=== PATIENT | male | born 1940 | race Caucasian/White ===

== ENCOUNTER → 2018-01-26 | Outpatient (CLI) | payer OTHER ==
[~2018-01-26] VITALS: Ht 180.3 cm; Wt 86.2 kg
[~2018-01-26] MED LIST: ARTIFICIAL TEAR1510 OPHTHALMIC; ASPIRIN81 M2 PO; BENADRYL25 MG PO; MULTIVITAMINS1 EAC4 PO; PROTONIX40 M1 PO
--- NOTE | ~2018-01-26 | P ---
[facility] [place] [address] PROCEDURE REPORT Name: PADMINIMARTITA P [id number] Admission: 01/26/18 Attend Phys: Pj Meza Discharge: Date of : 40 Report #: [id number] THIS REPORT FOR: //name// CC: Dexter Cárdenas DATE OF SERVICE: 01/26/2018 PROCEDURE PERFORMED: Upper endoscopy with esophageal dilation. HISTORY OF PRESENT ILLNESS: The patient is a 77-year-old male who was seen by myself in the office recently for melanotic type stools. He has been taking aspirin in the past. He had an upper endoscopy several years ago showing grade B erosive esophagitis, but he did not stay on PPI therapy. He does report intermittent heartburn symptoms and he takes Tums on a p.r.n. basis. He also complains of dysphagia at times. Plan is for EGD and colonoscopy today. DESCRIPTION OF PROCEDURE: The risks and benefits of the procedure were explained to the patient. Those risks including but not limited to bleeding, perforation and the risk of sedation. He understood these risks and gave informed consent. Sedation was given using propofol per Anesthesia. Next, using a standard PSafen upper endoscope, the scope was placed in the patient's mouth and advanced under direct vision through the esophagus, stomach and into the second portion of the duodenum. The larynx was normal in appearance. There was mild narrowing in the upper esophagus. The mid esophagus was normal. In the distal esophagus, a mild Schatzki's ring with grade B erosive esophagitis was noted. No evidence of bleeding. Overall, the gastric mucosa was normal. The pylorus was normal and patent. The duodenal bulb, first and second portion were all normal. The scope was then brought back up into the patient's stomach and a Savary guidewire was inserted through the scope, leaving the guidewire in place. Next, a 48-Bengali Savary dilation of the esophagus was then performed without difficulty. The wire and dilator removed. The scope was reintroduced into the patient's stomach. There was a small mucosal tear in the upper esophagus but no bleeding. The scope was then withdrawn and the procedure terminated. The patient tolerated the procedure well. IMPRESSION: 1. Mild narrowing, upper esophagus. 2. Mild Schatzki's ring, lower esophagus with grade B erosive esophagitis. No evidence of bleeding. 3. Otherwise, normal upper endoscopy. RECOMMENDATIONS: 1. Observe the patient post-dilation. 2. Continue daily PPI therapy. [address] [address] PROCEDURE REPORT Name: MARTITA WASHINGTON Room #: REG VALERIE Livingston#: [id number] Admission: 01/26/18 Attend Phys: Pj Meza Discharge: Date of : 40 Report #: [id number] 3. We will proceed with colonoscopy next today. Thank you for allowing me to participate in his care. <ELECTRONICALLY SIGNED> By: Pj Cárdenas MD 01/27/18 0854 [id number] 1231 Pj Cárdenas MD /nt
--- NOTE | ~2018-01-26 | S ---
[facility] [place] [address] SURGICAL PATH RPT PROCEDURE Name: MARTITA JACKSON [facility] #: [facility] [id number] Admission: 01/26/18 Date of : 40 Discharge: Report #: [id number] Path Case #: [id number] PATHOLOGY REPORT COLLECTION DATE: 01/26/2018 RECEIVED DATE: 01/26/2018 SUBMITTING PHYS: Dr. Pj Cárdenas OTHER PHYS: Dr. Dexter Lima SPECIMEN(S) RECEIVED: A.Polyp @ descending colon * * * * * * * * * * * * FINAL DIAGNOSIS: Polyp, at descending colon, endoscopic biopsy: - Tubular adenoma. - Negative for high grade dysplasia. - Unremarkable mucosa present at cauterized/stalk margin. (IUV:db; 01/29/2018) PATHOLOGIST: Oxana Monique M.D. REPORT ELECTRONICALLY SIGNED BY: Oxana Monique M.D. DATE/TIME: 01/29/2018 13:47 * * * * * * * * * * * * GROSS PATHOLOGY: Received in formalin labeled "Martita Jackson, polyp at descending colon," is a 0.9 x 0.5 x 0.5 cm polypoid piece of weeks soft tissue. The margin is inked and the tissue is sectioned perpendicular to the margin and submitted in its entirety in cassette A1. (TSD; 01/26/2018) CLINICAL HISTORY: Pre-OP DX: Hx polyps, abdominal pain, blood in stool Post-OP DX: Colon polyp INITIAL CPT CODE(S): A; 62869 Professional services performed by [facility] at [facility] [address], [place] [address] Technical services performed by [facility] at [address] [place] [address], [address] [address]. [facility] [address] [address] SURGICAL PATH RPT PROCEDURE Name: MARTITA JACKSON Room #: REG [facility] Arthur.#: [id number] Admission: 01/26/18 Date of : 40 Discharge: Report #: [id number] Path Case #: [id number] [facility] [address] [address] PHONE: [phone] DIRECTOR: John Paul Morataya M.D. * * * END OF REPORT * * *
--- NOTE | ~2018-01-26 | P ---
[facility] [place] [address] PROCEDURE REPORT Name: PADMINIMARTITA P Room #: REG [facility]#: [id number] Admission: 01/26/18 Attend Phys: Pj Meza Discharge: Date of : 40 Report #: [id number] THIS REPORT FOR: //name// CC: Dexter Cárdenas DATE OF SERVICE: 01/26/2018 PROCEDURE PERFORMED: Colonoscopy with polypectomy. HISTORY OF PRESENT ILLNESS: The patient is a 77-year-old male with recent history of dark melenic type stools. Upper endoscopy was just performed by myself today showing grade B erosive esophagitis, mild duodenitis, no active bleeding. The patient's last colonoscopy was reportedly 7 years ago. He is unsure if he had a polyp at that time. It appears they were unsuccessful in reaching the cecum and the patient underwent a barium enema. Plan is for colonoscopy. DESCRIPTION OF PROCEDURE: The risks and benefits of the procedure were explained to the patient, those risks including but not limited to bleeding, perforation, the risk of sedation. He understood these risks and gave informed consent. Sedation was given using propofol per anesthesia. Next, a digital rectal exam was initially performed, which showed a small external hemorrhoid. Next, using a standard Fujinon colonoscope, the scope was placed in the patient's anus and advanced under direct vision to the cecum. The overall prep was excellent. The cecum and ileocecal valve were normal in appearance. The ascending and transverse colon were normal. In the descending colon, there was a 6 mm partially pedunculated polyp. This was removed by snare cautery, otherwise normal. Scattered diverticula were noted in the sigmoid colon, no evidence of inflammation or bleeding, otherwise normal. The rectal mucosa was normal. On retroflexion, no abnormalities were noted. The scope was then withdrawn and the procedure terminated. The patient tolerated the procedure well. IMPRESSION: 1. Sigmoid diverticulosis. 2. External hemorrhoids. 3. Descending colon polyp. RECOMMENDATIONS: 1. Await biopsy results. 2. If polyp is adenomatous, consider repeat colonoscopy in 5 years. 3. No evidence of bleeding on exam today. The patient did have grade B erosive esophagitis, mild duodenitis. We will continue daily PPI therapy indefinitely. If he has recurrent signs of bleeding, we will Hemoccult test stools at that [address] [address] PROCEDURE REPORT Name: MARTITA WASHINGTON Room #: REG [facility] Miki#: [id number] Admission: 01/26/18 Attend Phys: Pj Meza Discharge: Date of : 40 Report #: [id number] point. Thank you for allowing me to participate in his care. <ELECTRONICALLY SIGNED> By: Pj Cárdenas MD 01/27/18 0854 [id number] 1213 Pj Cárdenas MD /melissa
== END | disposition home or self-care (01) ==
LOC: GI 08:16
DX: D12.4 Benign neoplasm of descending colon (principal); K57.30 Diverticulosis of large intestine without perforation or abscess without bleeding; K64.4 Residual hemorrhoidal skin tags; K22.10 Ulcer of esophagus without bleeding; K22.2 Esophageal obstruction; K21.9 Gastro-esophageal reflux disease without esophagitis; Z87.19 Personal history of other diseases of the digestive system; Z87.891 Personal history of nicotine dependence; Z79.82 Long term (current) use of aspirin; Z79.899 Other long term (current) drug therapy; Z98.890 Other specified postprocedural states
CPT/HCPCS: 62110; 62900

== ENCOUNTER → 2018-04-11 | Outpatient (CLI) | payer OTHER | LOC: ULTRA 08:38 | DX: R10.11 Right upper quadrant pain (principal); I25.10 Atherosclerotic heart disease of native coronary artery without angina pectoris; I70.0 Atherosclerosis of aorta; N40.0 Benign prostatic hyperplasia without lower urinary tract symptoms; K76.89 Other specified diseases of liver ==